=== PATIENT | male | born 1990 | race Caucasian/White ===

== ENCOUNTER 2017-10-21 00:04 | Observation (INO) | payer BC, SELFPAY ==
[2017-10-21] MEDS ORDERED: Ondansetron HCl/PF 4 MG/2 ML Vial ONE ×2 (00:49→13:01)
[2017-10-21] MEDS ORDERED: Morphine 4 MG/ML VIAL ONE ×2 (00:49→01:15)
[2017-10-21 01:01] LABS: #Basophils 0.1 thou/uL (0.0-0.2); #Eosinphils 0.2 thou/uL (0.0-0.7); #Lymphocytes 2.5 thou/uL (1.20-3.40); #Monocytes 0.3 thou/uL (0.11-0.59); #Neutrophils 4.6 thou/uL (1.40-6.50); %Basophils 0.8 % (0.0-1.0); %Eosinophils 2.2 % (0.0-10.0); %Lymphocytes 32.2 % (21.0-51.0); %Monocytes 4.5 % (0.0-10.0); %Neutrophils 60.3 % (42.0-75.0); Hemoglobin 14.5 g/dL (14.0-18.0); Mean Corpuscular HGB CONC 32.8 g/dL (32.0-36.0); Mean Corpuscular Hemoglobin 30.3 pg (27.0-31.0); Mean Corpuscular Volume 92.3 fl (80.0-94.0); Mean Platelet Volume 7.6 fL (7.4-10.4); Platelet Count 275 thou/uL (130-400); Red Blood Cell (RBC) Count 4.78 mill/uL (4.70-6.10); White Blood Cell (WBC) Count 7.6 thou/uL (4.8-10.8)
[2017-10-21 01:08] LABS: PTT 27.9 SEC (22.9-36.1); Prothrombin Time 13.7 SEC (12.0-14.7)
[2017-10-21 01:18] LABS: Anion Gap 18 mmol/L (10-20); BUN (Urea Nitrogen) 19 mg/dL (8.9-20.6); Calc. Creatinine Clearance 0 mL/min (70-130); Calcium 9.6 mg/dL (7.8-10.44); Carbon Dioxide 22 mmol/L (22-29); Chloride 106 mmol/L (98-107); Estimated GFR-MDRD 75; Glucose 120 mg/dL (70-105); Potassium 4.3 mmol/L (3.5-5.1); Sodium 142 mmol/L (136-145)
[2017-10-21] MEDS ORDERED: Ondansetron ODT 4 MG TAB SL PRN (03:03)
[2017-10-21] MEDS ORDERED: Ondansetron HCl/PF 4 MG/2 ML Vial IVP PRN ×2 (03:03→03:18)
[2017-10-21] MEDS ORDERED: Morphine 4 MG/ML VIAL SLOW IVP PRN ×2 (03:03→03:18)
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
[2017-10-21] MEDS ORDERED: Ondansetron ODT 4 MG TAB PO PRN (03:18)
[2017-10-21] MEDS ORDERED: Ketorolac Tromethamine 30 MG/ML VIAL IVP SCH ×2 (03:18→12:00)
[2017-10-21] MEDS ORDERED: Dextrose 5% in Water 1,000 ML IV PRN (03:18)
[2017-10-21] MEDS ORDERED: Promethazine HCl 25 MG/ML VIAL IM PRN ×2 (03:18)
[2017-10-21] MEDS ORDERED: Dextrose 50% Abboject 50 ML SYRINGE SLOW IVP PRN (03:18)
[2017-10-21] MEDS: Sodium Chloride 0.9% 1,000 ML IV SCH ×2 (04:15→11:51)
[2017-10-21] MEDS: D5 1/2 NS w/20 mEq KCL 1,000 ML IV SCH ×2 (04:16→11:51)
[2017-10-21 04:45] VITALS: BMI 29.9
[2017-10-21] MEDS: Acetaminophen 1,000 MG in Premix Bag 1 BAG IVPB SCH ×2 (06:55→11:59)
[2017-10-21] MEDS ORDERED: CEFAZOLIN/Water 2 GM/20 ML SYRINGE SLOW IVP SCH (07:30)
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
--- NOTE | 2017-10-21 08:20 | RAD ---
LEFT KNEE FOUR VIEWS: History: Injury to left knee with pain. FINDINGS: There is a displaced fracture involving the medial tibial condyle. There is mild comminution. There i s displacement of the articular surface. IMPRESSION: Comminuted displaced fracture involving the medial tibial condyle. There is displacement of the media l tibial plateau. POS: [facility]
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
--- NOTE | 2017-10-21 10:28 | PRG ---
DATE OF SERVICE: 10/21/2017 ATTENDING PHYSICIAN: Dr. Maria. SUBJECTIVE: Mr. Sawyer is a 27-year-old man, who was admitted earlier this morning after an injury to his left tibial plateau. He was evaluated in the ED and found to have a left tibial plateau fracture. He was admitted to the hospital by Trauma Services. He was evaluated by Dr. Dahl in consultation. Dr. Dahl plans on taking the patient to the OR later today. He reports pain has been well controlled. He remains n.p.o. OBJECTIVE: VITAL SIGNS: Temperature 98.5, pulse 73, respirations 16, O2 sat 96% on room air, blood pressure 118/65. GENERAL/CONSTITUTIONAL: A well-developed, well-nourished male, in no acute distress. HEENT: Atraumatic, normocephalic. CARDIOVASCULAR: Regular rate and rhythm. Heart sounds normal. RESPIRATORY: Bilateral breath sounds, clear. Respirations even and unlabored. CHEST: No chest wall tenderness. ABDOMEN: Soft, nontender, nondistended. No masses. PELVIS: Stable. EXTREMITIES: Moves all extremities. Cap refill brisk in lower extremities. Neurovascularly intact lower extremities. Left knee immobilizer in place. NEUROLOGIC: GCS 15. Alert and oriented x3. No focal deficits. ASSESSMENT: 1. Left medial tibial plateau fracture. 2. Acute alcohol intoxication. PLAN: 1. Dr. Dahl to take to OR today. 2. PT/OT evaluation with orthopedic restrictions after OR. 3. Continue n.p.o., IV fluids, IV analgesia. 4. SCDs on right lower extremity for DVT prophylaxis. 5. Pepcid for PUD prophylaxis. The patient was seen and examined with Dr. Maria, who agrees with plan. [facility]
[2017-10-21] MEDS: Famotidine 20 MG TAB PO SCH ×2 (11:50→21:28)
[2017-10-21] MEDS ORDERED: Ketorolac Tromethamine 30 MG/ML VIAL ONE (13:01)
[2017-10-21] MEDS ORDERED: PROPOFOL 200 MG/20 ML VIAL ONE (13:01)
[2017-10-21] MEDS ORDERED: Dexamethasone 20 MG/5 ML VIAL ONE (13:01)
[2017-10-21] MEDS ORDERED: CEFAZOLIN/Water 2 GM/20 ML SYRINGE ONE (13:10)
[2017-10-21] MEDS ORDERED: Midazolam HCl 2 mg/2 ml Vial ONE (13:11)
[2017-10-21] MEDS ORDERED: Fentanyl 100 MCG/2 ML VIAL ONE ×3 (14:22→17:06)
[2017-10-21] MEDS ORDERED: HYDROmorphone 0.5 MG/0.5 ML SYRINGE ONE (15:40)
[2017-10-21] MEDS: Acetaminophen 500 MG TAB PO SCH (21:28)
[2017-10-21] MEDS: CEFAZOLIN/Water 2 GM/20 ML SYRINGE SLOW IVP SCH (21:29)
[2017-10-21] MEDS ORDERED: traMADol HCl 50 MG TAB PO PRN (21:41)
[2017-10-21] MEDS: traMADol HCl 50 MG TAB PO SCH (23:22)
[2017-10-21] MEDS ORDERED: Ibuprofen 600 MG TAB PO SCH (23:59)
[2017-10-22] MEDS: Acetaminophen 500 MG TAB PO SCH ×3 (04:48→15:36)
[2017-10-22] MEDS: traMADol HCl 50 MG TAB PO SCH ×2 (06:51→11:37)
[2017-10-22] MEDS: CEFAZOLIN/Water 2 GM/20 ML SYRINGE SLOW IVP SCH ×2 (06:51→15:37)
[2017-10-22 07:42] LABS: #Basophils 0.1 thou/uL (0.0-0.2); #Lymphocytes 1.3 thou/uL (1.20-3.40); #Monocytes 1.1 thou/uL (0.11-0.59); #Neutrophils 10.5 thou/uL (1.40-6.50); %Basophils 0.6 % (0.0-1.0); %Eosinophils 0.1 % (0.0-10.0); %Monocytes 8.3 % (0.0-10.0); %Neutrophils 81.1 % (42.0-75.0); Hemoglobin 12.5 g/dL (14.0-18.0); Mean Corpuscular HGB CONC 33.3 g/dL (32.0-36.0); Mean Corpuscular Hemoglobin 31.2 pg (27.0-31.0); Mean Corpuscular Volume 93.7 fl (80.0-94.0); Mean Platelet Volume 7.1 fL (7.4-10.4); Platelet Count 217 thou/uL (130-400); RBC Distribution Width 11.8 % (11.5-14.5)
--- NOTE | 2017-10-22 07:47 | RAD ---
LEFT TIBIA FIBULA: Fluoroscopic views of the left knee are presented. Three views are obtained from the OR. INDICATION: Intraoperative imaging during internal fixation procedure. FINDINGS/IMPRESSION: Plate and screws transfix the proximal tibia transfixing a medial tibial plateau fracture. POS: [facility]
[2017-10-22] MEDS: Famotidine 20 MG TAB PO SCH (08:18)
[2017-10-22 08:30] VITALS: TEMP 98.3
--- NOTE | 2017-10-22 08:35 | PRG ---
DATE OF SERVICE: 10/21/2017 SUBJECTIVE: The patient is status post open reduction and internal fixation of a left tibial plateau fracture, which he underwent this procedure this afternoon. The patient [facility] and is currently tolerating a diet. His pain is controlled on p.o. medications and he has no complaints at this time. The patient has not worked with physical or occupational therapy; th is is planned for tomorrow. PHYSICAL EXAMINATION: VITAL SIGNS: Temperature is 98.4, heart rate 75, blood pressure 138/72, respirations 18. GENERAL: The patient is resting comfortably in bed. He is alert and oriented x3. Ame coma scal e 15. LUNGS: Clear to auscultation with good inspiratory and expiratory effort. HEART: Regular rate and rhythm. ABDOMEN: Soft, flat, nontender with active bowel sounds. EXTREMITIES: Neurovascularly intact x3. Left lower extremity: The patient is still having a little paresthesias secondary to presumably his block intraoperatively. The patient states that he is feel ing his feet "awaken." Otherwise, the patient's capillary refill in all extremities less than 3 seco nds and pulses are 2+. The patient's postop dressing and knee immobilizer clean, dry, and intact. ASSESSMENT: 1. Status post left tibial plateau fracture. 2. Status post open reduction and internal fixation of same. PLAN: We will be to continue pain management, diet as tolerated and begin physical and occupational therapy tomorrow and await placement decision home versus possible rehab.
[2017-10-22] MEDS ORDERED: Naproxen 500 MG TAB PO SCH (09:00)
[2017-10-22] MEDS ORDERED: Acetaminophen/Codeine 30-300mg Tablet PO PRN ×2 (09:28)
--- NOTE | 2017-10-22 12:06 | OP ---
DATE OF SURGERY: 10/21/2017 PREOPERATIVE DIAGNOSIS: Comminuted medial tibial plateau fracture, left. POSTOPERATIVE DIAGNOSIS: Comminuted medial tibial plateau fracture, left. SURGICAL PROCEDURE: Open reduction and internal fixation, left medial tibial plateau. ANESTHESIA: General. SURGEON: Kodi Dahl M.D. SIGN LANGUAGE INSTRUCTOR: Sofy Flannery PA-C TOURNIQUET TIME: Approximately 2 hours at 300 mmHg. IMPLANTS: The Synthes proximal medial tibial plate was used with a combination of 3.5 mm locking scr ews and 3.5 mm cortical screws. COMPLICATIONS: None. DRAINS: None. SPECIMEN: None. OUTCOME: Satisfactory. INDICATIONS: Mr. Sawyer is a 27-year-old gentleman, who sustained a medial tibial plateau fracture whe n stepping awkwardly while carrying a load. X-ray and CT scan has confirmed a comminuted intra-artic ular medial tibial plateau fracture. After discussion with patient including risks and benefits, we have decided to proceed with open reduction and internal fixation. Risks and benefits were fully dis cussed and consent obtained. PROCEDURE IN DETAIL: The patient was brought to the operating room and a timeout performed followed by induction of general anesthesia. The patient was then positioned supine on the OR table and a osmin rile prep and drape was performed of the left lower extremity. A brief exam of the knee was performe d with respect to ligamentous integrity and he was found to have a deficient posterior cruciate ligam ent. Next, the limb was exsanguinated with Esmarch bandage, tourniquet inflated to 300 mmHg. A medi al incision was made extending from just proximal to the medial epicondyle and then extending along t he medial border of the tibia. After skin was sharply incised, dissection was carried down bluntly t o the fascial layer and visualization of the fibers of the medial collateral ligament. The incision just along the anterior border and posterior border of the medial collateral ligament was performed w ith some fascia elevated anteriorly and posteriorly, but keeping the medial collateral ligament intac t. The hamstring insertion was also identified, and these were preserved for procedure. Undermining of the hamstring insertion was then performed to allow for plate stabilization. Just posterior to t he MCL, the meniscal capsule junction was identified. The meniscus was incised and then reflected po steriorly and anteriorly allowing full visualization of the comminuted medial tibial plateau. The fr acture hematoma was lavaged from the wound and then the fragments of the medial tibial plateau were r eapproximated and held in place with a 1.25 mm K-wire. Once anatomically aligned, cannulated screws were passed over a few of these K-wires to get stabilization of the articular fragment. Once stabili zed, the articular fragments were backfilled with cancellous bone chips to provide some structural in tegrity as well as a matrix for new bone ingrowth. Next, a Synthes small fragment proximal medial ti bial plate was passed under the hamstrings and placed just posterior to the medial collateral ligamen t. This was then held in place with 3 locking screws proximally and then a combination of cortical s crew and locking screw distally. At the completion of this, the plate was found to be riding just sl ightly posteriorly off of the tibia. However, 2 screws holding the plate against the shaft were felt to be solid enough that additional screws distally were not required and the plate alignment allowed for good stabilization of the articular fragment. As such, final AP and lateral C-arm images were o btained that showed near anatomic alignment of the medial tibial plateau. The wound then irrigated c opiously with bulb syringe and then closed in layers with 0 Vicryl for the capsular with some 2-0 PDS for the medial meniscus and meniscal capsular repair followed by 0 Vicryl for the fascial repair, an d then 2-0 Vicryl and corey for the skin. A Xeroform gauze, Webril, and Justino wrap dressing was appl ied to the knee and the knee was placed in knee immobilizer. Tourniquet was let down and patient was transferred to recovery room in stable condition. There were no complications. The patient tolerat ed the procedure well.
[2017-10-22 12:23] VITALS: BP 142/73
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
== END 2017-10-22 16:24 | disposition home or self-care (01) ==
LOC: ERS 00:04 → SURG A 01:15
PROVIDERS: ADMIT Specialist; ATTEND Specialist
PROC: 0QSH04Z Reposition Left Tibia with Internal Fixation Device, Open Approach (ICD-10-PCS; principal; 2017-10-22)
DX: Z88.8 Allergy status to other drugs, medicaments and biological substances; X50.0XXA Overexertion from strenuous movement or load, initial encounter; F10.129 Alcohol abuse with intoxication, unspecified; S82.142A Displaced bicondylar fracture of left tibia, initial encounter for closed fracture
CPT/HCPCS: 36415; 76001; 80048; 80307; 85025; 85610; 85730; 96361; 96374; 96375; 96376; A4216; C1713; G0378; G8978-GP-CK; G8979-GP-CI; G8987-GO-CJ; G8988-GO-CI; J0131; J1100; J1170; J1885; J2250; J2270; J2405; J2704; J3010

== ENCOUNTER 2018-05-07 09:59 | Outpatient (CLI) | payer BC ==
--- NOTE | 2018-05-07 11:59 | CT ---
CT LEFT KNEE WITHOUT CONTRAST: Date: 05/07/18 HISTORY: S82.132 closed fracture medial left tibial plateau. COMPARISON: Radiographs from 10/21/17. FINDINGS: There is extensive disuse osteopenia of the femoral condyles. There is a medial plate and screw fixat ion of the medial tibial plateau fracture. There is lack of approximation of the dominant medial tibi al plateau fracture fragment in the sagittal plane extending from posterior medial to anterior latera l to the medial tibial spine due to multiple small fracture fragments interposed between the dominant fracture fragment and the remaining tibial plateau. The anteriormost medial to lateral interfragment endy screw does abut the articular surface. There are fracture fragments along the expected location o f the posterior cruciate ligament. The medial joint space is widened approximately 2.0 mm due to belinda cular surface depression anteriorly. IMPRESSION: 1. Extensive disuse osteopenia around the knee. 2. The anteriormost medial to lateral interfragmentary screw does abut the anterior articular surfac e of the medial compartment. 3. Lack of apposition of the dominant medial tibial plateau fracture fragment with the underlying alton ne due to multiple small fragments interposed between the fracture fragment and the normal bone, with the gap measuring up to 4.0 mm at the level of the mid medial tibial plateau. 4. Widening of the medial joint space relative to the lateral joint space approximately 2.0 mm due t o continued articular surface smooth depression. 5. Multiple fracture fragments along the expected location of the posterior cruciate ligament which may represent heterotopic ossification of the ligament. POS: [facility]
== END 2018-05-07 10:00 | disposition home or self-care (01) ==
LOC: BICCT 09:59
PROVIDERS: ATTEND Orthopaedic Surgery
DX: S82.132D Displaced fracture of medial condyle of left tibia, subsequent encounter for closed fracture with routine healing (principal); M85.88 Other specified disorders of bone density and structure, other site

== ENCOUNTER 2018-05-26 09:21 | Inpatient (IN) | payer BC ==
[2018-05-25 10:23] VITALS: BMI 29.2
[2018-05-26] MEDS ORDERED: CEFAZOLIN 2 GM/50 ML BAG ONE (12:30)
[2018-05-26] MEDS ORDERED: Midazolam HCl 2 mg/2 ml Vial ONE (12:47)
[2018-05-26] MEDS ORDERED: Dexamethasone 4 mg/ml Vial ONE (12:47)
[2018-05-26] MEDS ORDERED: Fentanyl 100 MCG/2 ML VIAL ONE ×4 (12:47→19:34)
[2018-05-26] MEDS ORDERED: HYDROmorphone 2 MG/ML VIAL ONE (16:53)
[2018-05-26] MEDS ORDERED: Phenylephrine HCL 10 MG/ML VIAL ONE (17:26)
[2018-05-26] MEDS ORDERED: Promethazine HCl 25 MG/ML VIAL SLOW IVP PRN (18:47)
[2018-05-26] MEDS ORDERED: Ondansetron HCl/PF 4 MG/2 ML Vial IVP PRN (18:47)
[2018-05-26] MEDS ORDERED: HYDROmorphone 2 MG/ML VIAL SLOW IVP PRN (18:47)
[2018-05-26] MEDS ORDERED: Promethazine HCl 25 MG/ML VIAL IM PRN (18:47)
[2018-05-26] MEDS ORDERED: traMADol HCl 50 MG TAB PO PRN ×2 (18:48)
[2018-05-26] MEDS ORDERED: Fentanyl 100 MCG/2 ML VIAL SLOW IVP PRN (18:48)
[2018-05-26] MEDS ORDERED: HYDROcodone/Acetaminophen 10/325 mg Tablet PO PRN (18:48)
[2018-05-26] MEDS ORDERED: Ondansetron PF 4 MG/2 ML Vial IV PRN (18:48)
[2018-05-26] MEDS ORDERED: Ondansetron ODT 4 MG TAB PO PRN (18:48)
[2018-05-26] MEDS ORDERED: Communication Order-Pharmacy FS SCH (19:00)
[2018-05-26] MEDS: CEFAZOLIN 2 GM/50 ML BAG IVPB SCH (21:08)
[2018-05-26] MEDS: Aspirin 81 mg Enteric Coated Tablet PO SCH (21:08)
[2018-05-26] MEDS: HYDROcodone/Acetaminophen 10/325 mg Tablet PO PRN (21:11)
[2018-05-26] MEDS: Sodium Chloride 0.9% 1,000 ML IV SCH (21:12)
[2018-05-26] MEDS: Sodium Chloride 0.9% 100 ML IV SCH (22:33)
[2018-05-26] MEDS: Ketorolac Tromethamine 30 MG/ML VIAL IVP SCH (23:54)
[2018-05-27] MEDS: CEFAZOLIN 2 GM/50 ML BAG IVPB SCH ×2 (04:29→11:38)
[2018-05-27 06:16] LABS: #Lymphocytes 0.6 thou/uL (1.20-3.40); #Monocytes 0.5 thou/uL (0.11-0.59); #Neutrophils 8.7 thou/uL (1.40-6.50); %Basophils 0.1 % (0.0-1.0); %Eosinophils 0.1 % (0.0-10.0); %Lymphocytes 6.3 % (21.0-51.0); %Monocytes 4.7 % (0.0-10.0); %Neutrophils 88.9 % (42.0-75.0); Hemoglobin 12.7 g/dL (14.0-18.0); Mean Corpuscular HGB CONC 32.9 g/dL (32.0-36.0); Mean Corpuscular Hemoglobin 31.3 pg (27.0-31.0); Mean Corpuscular Volume 95.2 fL (78.0-98.0); Mean Platelet Volume 7.8 fL (7.4-10.4); Platelet Count 241 thou/uL (130-400); RBC Distribution Width 12.3 % (11.5-14.5); Red Blood Cell (RBC) Count 4.07 mill/uL (4.70-6.10); White Blood Cell (WBC) Count 9.8 thou/uL (4.8-10.8)
[2018-05-27] MEDS: Ketorolac Tromethamine 30 MG/ML VIAL IVP SCH ×2 (06:24→11:38)
[2018-05-27] MEDS: Sodium Chloride 0.9% 1,000 ML IV SCH (06:39)
[2018-05-27] MEDS: Aspirin 81 mg Enteric Coated Tablet PO SCH (08:50)
[2018-05-27] MEDS: HYDROcodone/Acetaminophen 10/325 mg Tablet PO PRN ×2 (11:38→15:56)
[2018-05-27 15:26] VITALS: BP 122/73; TEMP 98.5
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
--- NOTE | 2018-05-28 08:38 | RAD ---
LEFT KNEE 2 VIEWS: Date: 05/26/18 HISTORY: Hardware removal and osteotomy. COMPARISON: CT dated 05/07/18. FINDINGS: Total fluoroscopy time of 59.6 seconds. Satisfactory postoperative appearance. IMPRESSION: Satisfactory postoperative appearance. POS: JOSEPHINE
== END 2018-05-27 17:48 | disposition home or self-care (01) | DRG 494 ==
LOC: SURG A 11:55
PROVIDERS: ADMIT Orthopaedic Surgery; ATTEND Orthopaedic Surgery
PROC: 0QBH0ZZ Excision of Left Tibia, Open Approach (ICD-10-PCS; principal; 2018-05-26)
PROC: 0QUH07Z Supplement Left Tibia with Autologous Tissue Substitute, Open Approach (ICD-10-PCS; 2018-05-26)
PROC: 0QBC0ZZ Excision of Left Lower Femur, Open Approach (ICD-10-PCS; 2018-05-26)
DX: S82.132A Displaced fracture of medial condyle of left tibia, initial encounter for closed fracture (principal)
CPT/HCPCS: 36415; 76001; 85025; 90471; 90686; C1713; G0008; G8978-GP-CI; G8979-GP-CI; G8980-GP-CI; J0131; J1100; J1170; J1885; J2250; J2370; J3010